=== PATIENT | male | born 1965 | race Caucasian/White ===

== ENCOUNTER 2016-05-11 06:22 | Day surgery (SDC) | payer OTHER ==
[2016-05-10 08:48] VITALS: BMI 25.0
[2016-05-11] MEDS ORDERED: EPINEPHrine 1:1,000 1 MG/1 ML - 30ML VIAL (INJECTION) ONE (07:07)
[2016-05-11] MEDS ORDERED: BUPIVACAINE HCL 0.25% 125 MG/50 ML VIAL ONE (07:07)
[2016-05-11] MEDS ORDERED: PROPOFOL 20 ML ONE ×3 (07:26)
[2016-05-11] MEDS ORDERED: MIDAZOLAM HCL 2 MG/2 ML SINGLE DOSE VIAL ONE (07:26)
[2016-05-11] MEDS ORDERED: SUCCINYLCHOLINE CHLORIDE 200 MG/10 ML VIAL ONE (07:26)
[2016-05-11] MEDS ORDERED: BUPIVACAINE HCL/PF 0.25% (2.5MG/ML) 10 ML VIAL IJ ONE (08:34)
[2016-05-11] MEDS ORDERED: ePHEDrine SULFATE 50 MG/1 ML AMPULE ONE (08:54)
[2016-05-11] MEDS ORDERED: ONDANSETRON 4 MG/2 ML VIAL IVPUSH PRN (10:00)
[2016-05-11] MEDS ORDERED: LACTATED RINGERS SOLUTION 1,000 ML IV SCH (10:00)
[2016-05-11] MEDS ORDERED: oxyCODONE HCL 5 MG TABLET PO PRN (10:00)
--- NOTE | 2016-05-11 10:04 | OP ---
DATE OF OPERATION: 05/11/2016 PREOPERATIVE DIAGNOSIS: Left knee medial meniscal tear. POSTOPERATIVE DIAGNOSIS: Left knee medial meniscal tear. PROCEDURE: Left knee arthroscopy, partial medial meniscectomy. SURGEON: Chidi Chacon M.D. COMMERCIAL LOAN REVIEWER: ARLEY Chase ANESTHESIA TYPE: General. POSTOPERATIVE CONDITION: Stable. COMPLICATIONS: None. INDICATIONS: This is a pleasant gentleman who had been suffering from medial knee pain. MRI demonstrated a medial meniscal tear. Non-operative, versus operative treatment options were discussed. Operative risks were reviewed in detail, including bleeding, infection, neurovascular injury, need for further surgery, postoperative pain and stiffness and progression of osteoarthritis. We reviewed the medical risks, such as heart attack, stroke, DVT, PE and . Patient voiced understanding and elected to proceed. PROCEDURE: The patient was brought to the operating room, where general anesthesia was administered. The left lower extremity was then prepped and draped in the usual sterile fashion. A preoperative dose of antibiotics was given and the usual timeout procedure was performed. At this point, the portal sites were marked out and injected subcutaneously with 0.25% Marcaine. The portal sites were then incised using an 11 blade laterally. The arthroscope was then passed into the knee. Examination of the patellofemoral joint demonstrated some superficial cartilage fraying. The arthroscope was now passed down into the medial compartment. Here, fraying was seen about the posterior horn of the medial meniscal. A medial portal was now established under spinal needle localization. The arthroscope was now passed back further into the knee and a complex tear of the posterior horn of the medial meniscus was seen. There was some slight cartilage fraying that was noted in both the tibial and femoral cartilage surfaces. Using a combination of endoscope biters and the shaver, the meniscal tear was debrided down to a stable base. The arthroscope was now passed into the notch. Here, the ACL and PCL were visualized to be intact. Passing the arthroscope into the lateral compartment demonstrated the lateral meniscus was intact. There was moderate fraying of the tibial surface and mild fraying of the femoral surface without any definite fissures, or cartilage loss. The meniscus was probed and found to be stable and without tears. At this point, the excess fluid was withdrawn from the knee. The portals were sutured using 3-0 nylon. A compression dressing was placed. The patient was extubated and transferred to the recovery room in stable condition. Patti [id number]
[2016-05-11 10:32] VITALS: TEMP 97.8
[2016-05-11 10:57] VITALS: BP 144/84; PULSE 61
== END 2016-05-11 11:00 | disposition home or self-care (01) ==
LOC: FASU 06:22
PROVIDERS: ATTEND Orthopaedic Surgery Sports Medicine
PROC: 0SBD4ZZ Excision of Left Knee Joint, Percutaneous Endoscopic Approach (ICD-10-PCS; principal; 2016-05-11 08:00)
DX: S83.242A Other tear of medial meniscus, current injury, left knee, initial encounter (principal); X58.XXXA Exposure to other specified factors, initial encounter; Y93.9 Activity, unspecified; Y92.9 Unspecified place or not applicable
CPT/HCPCS: 94760